=== PATIENT | female | born 1965 | race Caucasian/White ===

== ENCOUNTER 2018-09-13 07:31 | Inpatient (IN) ==
[2018-09-13] MEDS ORDERED: Lidocaine -MPF 2% 2 ML VIAL ONE (07:51)
[2018-09-13] MEDS ORDERED: Lidocaine -MPF 4% 5 ML AMPUL ONE (07:51)
[2018-09-13] MEDS ORDERED: *HR* Midazolam HCl 2 MG/2 ML VIAL ONE (07:51)
[2018-09-13] MEDS ORDERED: Dexamethasone 4 MG/ML VIAL ONE (07:51)
[2018-09-13] MEDS ORDERED: *HR* Rocuronium Bromide 50 MG/5 ML VIAL ONE (07:51)
[2018-09-13] MEDS ORDERED: Ondansetron 4 MG/2 ML VIAL ONE (07:51)
[2018-09-13] MEDS ORDERED: Neostigmine Methylsulfate 3 MG/3 ML SYRINGE ONE (07:51)
[2018-09-13] MEDS ORDERED: *HR* FentaNYL (PF) 100 MCG/2 ML VIAL ONE ×2 (07:51→11:46)
[2018-09-13] MEDS ORDERED: *HR* Propofol 200 MG/20 ML VIAL IVP ONE (07:52)
--- NOTE | 2018-09-13 07:56 | History & Physical Report ---
Date of Encounter: 09/13/18 Time of Encounter: 07:50 24 Hour HP Update - Instructions Instructions: If the History and Physical is less than 30 days old and was completed prior to A.M. admission and or procedure and has NOT been updated on calendar day of procedure please complete this update prior to performing procedure. - Update Patient reports changes in Medical Condition: No Changes in examination, assessment, or condition: No Changes in Medication: No Preop tests/diagnostics Reviewed: Yes Surgery Remains Indicated: Yes Consent for Planned Operative Procedure(s) Verified: Yes - Pre-Operative Checklist Preoperative Checklist Indicated: Yes Prophylactic Antibiotic Ordered: Yes (vancomycin due to MRSA risk) Home Medications Include Beta Aaron: Yes Beta Aaron Taken Today (Day of Surgery): Yes Beta Aaron Taken Yesterday (Day Prior to Surgery): Yes Is VTE Prophylaxis Indicated?: Yes
[2018-09-13] MEDS ORDERED: *HR* Heparin 5,000 UNIT/ML VIAL ONE ×2 (07:58→11:45)
--- NOTE | 2018-09-13 08:05 | Anesthesia Evaluation PreOp ---
Date of Encounter: 09/13/18 Time of Encounter: 08:26 - Past History Planned Operation: LEFT FEMORAL POPLITEAL BPG Cardiac History: HTN, Hyperlipidemia, Pacemaker/ICD ([employer] AICD, ROAD [employer]KER), Other (NON ISCHEMIC CARDIOMYOPATHY, PAD, DREW LE CLAUDICATION, 60-79% LICA STENOSIS) Pulmonary History: Former smoker (QUIT 2014), COPD (MILD) MARKETING COMMUNICATIONS LEADER History: Other (ANXIETY, DEPRESSION) Other Medical History: Renal (CKD3), GERD (CONTROLLED), Other (OBESITY, BMI 32) Anesthesia History: No Prior Anesthetic Complications, Past Anesthesia Alcohol Use: none Drug use: none Medications and Allergies Acetaminophen [Tylenol] 1,000 mg PO Q6HR PRN #90 tablet 07/19/18 [Rx] Albuterol Sulfate [Ventolin Hfa] 2 aerosol IH Q6H PRN 07/19/18 [History] Aspirin [Lo-Dose Aspirin EC] 81 mg PO DAILY 07/19/18 [History] Atorvastatin Calcium [Lipitor] 80 mg PO DAILY 07/19/18 [History] Carvedilol [Coreg] 6.25 mg PO BIDWM 07/19/18 [History] Clopidogrel [Plavix] 75 mg PO DAILY #30 tablet 07/19/18 [Rx] Escitalopram [Lexapro] 10 mg PO DAILY 07/19/18 [History] Furosemide [Lasix] 40 mg PO DAILY 07/19/18 [History] Losartan Potassium [Cozaar] 50 mg PO DAILY 07/19/18 [History] [place]-3/Dha/Epa/Fish Oil [Fish Oil 1,000 mg Softgel] 2,000 mg PO DAILY 07/19/18 [History] Omeprazole [PriLOSEC] 20 mg PO DAILY 07/19/18 [History] Spironolactone [Aldactone] 25 mg PO DAILY 07/19/18 [History] traZODone [TraZODone] 100 mg PO HS 07/19/18 [History] Fluticasone Propionate Nasal [Flonase] 50 mcg NS DAILY 09/13/18 [History] Allergy/AdvReac Type Severity Reaction Status Date / Time codeine Allergy Itching Verified 07/19/18 06:42 hydrocodone [From Vicodin] Allergy Itching Verified 07/19/18 06:42 tramadol Allergy Vomiting Verified 07/19/18 06:42 - Meds/Allergy Pre-op Review Medications Reviewed: Yes Allergies Reviewed: Yes Beta Blockers on Current Med List: Yes If Beta Blockers taken, Date/Time (Last Dose taken): AM Anesthesia Results - Labs Laboratory Last Values WBC 5.9 K/mcL (4.3-11.1) 09/07/18 11:58 RBC 4.38 M/mcL (3.82-4.97) 09/07/18 11:58 Hgb 12.8 g/dL (11.5-15.4) 09/07/18 11:58 Hct 39.2 % (35.3-44.9) 09/07/18 11:58 MCV 89.5 fL (83.0-100.0) 09/07/18 11:58 MCH 29.2 pg (28.0-33.3) 09/07/18 11:58 MCHC 32.7 g/dL (31.6-35.5) 09/07/18 11:58 RDW 12.2 % (11.5-14.5) 09/07/18 11:58 Plt Count 205 K/mcL (140-400) 09/07/18 11:58 MPV 9.8 fL (9.4-12.4) 09/07/18 11:58 Immature Gran % 0.3 % (0-4) 09/07/18 11:58 Seg Neutrophils % 58.3 % 09/07/18 11:58 Lymphocytes % 31.5 % 09/07/18 11:58 Monocytes % 7.9 % 09/07/18 11:58 Eosinophils % 1.5 % 09/07/18 11:58 Basophils % 0.5 % 09/07/18 11:58 Neutrophils # 3.4 K/mcL (1.6-8.9) 09/07/18 11:58 Lymphocytes # 1.8 K/mcL (0.6-4.6) 09/07/18 11:58 Monocytes # 0.5 K/mcL (0.0-1.3) 09/07/18 11:58 Eosinophils # 0.1 K/mcL (0.0-0.6) 09/07/18 11:58 Basophils # 0.0 K/mcL (0.0-0.2) 09/07/18 11:58 PT 11.8 Seconds (9.4-12.1) 09/07/18 11:58 INR 1.0 09/07/18 11:58 APTT 33.5 Seconds (26.0-36.0) 09/07/18 11:58 Sodium 139 mEq/L (136-145) 09/07/18 11:58 Potassium 4.1 mEq/L (3.5-5.1) 09/07/18 11:58 Chloride 104 mEq/L (98-107) 09/07/18 11:58 Carbon Dioxide 28 mEq/L (23-29) 09/07/18 11:58 BUN 25 mg/dL (6-20) H 09/07/18 11:58 Creatinine 1.45 mg/dL (0.60-1.20) H 09/07/18 11:58 Est GFR ( Amer) 45 (> 60) L 09/07/18 11:58 Est GFR (Non-Af Amer) 37 (> 60) L 09/07/18 11:58 BUN/Creatinine Ratio 17 (6-26) 09/07/18 11:58 Glucose 131 mg/dL (70-105) H 09/07/18 11:58 Calculated Osmolality 294 (280-300) 09/07/18 11:58 Calcium 9.6 mg/dL (8.6-10.3) 09/07/18 11:58 Blood Type A POSITIVE 09/07/18 11:58 Antibody Screen NEGATIVE 09/07/18 11:58 Crossmatch See Detail 09/07/18 11:58 - Imaging Additional studies: TTE 04/2018: Technically sub-optimal due to poor echocardiographic windows. LVEF 50%. Normal LV chamber size, wall thickness and low normal function. Mild left ventricular diastolic dysfunction. Atypical septal motion consistent with paced rhythm. Normal right ventricular structure and function. No significant valvular dysfunction. No evidence of pulmonary hypertension. A device lead was visualized in the right atrium and right ventricle. STRESS TEST 08/2018: Perfusion imaging was negative for ischemia or infarct. There is a small sized persistent perfusion defect which is mild in intensity in the mid-inferior segment suggestive of attenuation artifact Pharmacologic ECG was negative for ischemia at the level of heart rate achieved. Gated EF = 67%. Anesthesia Exam O2 Sat Height 1.65 m Weight 87.997 kg O2 Sat by Pulse Oximetry 94 Vital Signs Temp Pulse Resp BP Pulse Ox 98.0 F 75 18 113/58 94 09/13/18 07:53 09/13/18 07:53 09/13/18 07:53 09/13/18 07:53 09/13/18 07:53 NPO (# of Hours): 8 - HEENT Mallampati: II Teeth: Normal Denture Type: Upper: Complete Oral Opening: Greater than 3 - Cardiac Rhythm: Regular - Pulmonary Breath Sounds: bilateral Clear Respiratory Effort: Symmetrical Anesthesia Assess/Plan ASA Score: 4 Anesthetic Plan: General Monitoring Plan: Standard Monitors, A-Line Recovery Plan: PACU Anes Supervising Prov Stmt: PATIENT'S CHART AND CURRENT MEDICATIONS REVIEWED. Patient informed and consented. Risks, benefits, and alternatives discussed. Patient wishes to proceed.
[2018-09-13] MEDS ORDERED: Albuterol 2.5 MG/3 ML NEBULIZER IH ONE ×2 (08:09→08:33)
[2018-09-13] MEDS ORDERED: CeFAZolin Syr 2,000MG/20 ML 2,000 MG/20 ML SYRINGE IVPB ONE (08:09)
[2018-09-13] MEDS ORDERED: Albuterol 2.5 MG/3 ML NEBULIZER ONE (08:12)
[2018-09-13] MEDS ORDERED: LIDOCAINE 1% PF 2 ML AMPUL ONE (08:12)
[2018-09-13] MEDS ORDERED: Ringers Solution, Lactated 1,000 ML IVC SCH (08:15)
[2018-09-13] MEDS ORDERED: Vancomycin 1,000 MG VIAL ONE (08:30)
[2018-09-13] MEDS ORDERED: Heparin 1,000 UNITS/500 mL 1,000 ML ONE (08:30)
[2018-09-13] MEDS ORDERED: Heparin 1,000 UNITS/500 mL 500 ML ONE (08:32)
[2018-09-13] MEDS ORDERED: Albumin Human 5% 25.0 GM/500 ML VIAL ONE (08:45)
[2018-09-13] MEDS ORDERED: *HR* Vasopressin 20 UNIT/ML VIAL ONE (08:46)
[2018-09-13] MEDS ORDERED: Vancomycin 1,000 MG, Sodium Chloride IRRigation 1,000 ML IR ONE (09:00)
[2018-09-13] MEDS ORDERED: EPHEDrine 50 MG/ML VIAL ONE ×2 (09:36→11:57)
[2018-09-13] MEDS ORDERED: *HR* OxyCODONE Immed Rel 5 MG TABLET PO PRN ×2 (12:36→15:16)
[2018-09-13] MEDS ORDERED: *HR* Morphine 2 MG/ML SYRINGE IVP PRN (12:36)
[2018-09-13] MEDS ORDERED: Albuterol 2.5 MG/3 ML NEBULIZER IH PRN (12:36)
[2018-09-13] MEDS ORDERED: *HR* Promethazine 25 MG/ML VIAL IVP PRN (12:36)
[2018-09-13] MEDS ORDERED: Furosemide 40 MG/4 ML VIAL ONE (12:59)
--- NOTE | 2018-09-13 13:32 | Operative Note ---
Date of procedure: 09/13/18 Pre-op diagnosis: Peripheral vascular disease with disabling claudication Post-op diagnosis: same Procedure: 1. Left common and deep femoral endarterectomy. 2. Left femoral to above-knee popliteal artery bypass with 6 mm ring reinforced PTFE Distaflo many cuff graft. Complications: None Anesthesia: GETA Surgeon: Michael Rivera Was there an trade sales assistant present: No Estimated blood loss (cc): 150 Specimen: Left lower extremity plaque Condition: stable Disposition: PACU Procedure in Detail: Indications: The patient is a 53-year-old female with a history of critical myopathy, hypertension, peripheral vascular disease with disabling claudication, a carotid stenosis. She is found have significant peripheral vascular disease with a left superficial femoral artery occlusion. A walking regimen was not helpful and her cardiomyopathy made cilostazol a contraindication. Revascularization was recommended to help alleviate her symptoms. Procedure: The patient was identified in the preoperative area. The risks, benefits, and alternatives of the procedure were discussed. All questions were answered. The patient was taken to the operating room and placed in supine position on the operating room table. After the induction of general endotracheal anesthesia, she was cleaned and draped in normal sterile fashion. An oblique incision was made over the left groin sharply. Hemostasis was obtained with electrocautery. Through a process of blunt, sharp, and electrocautery dissection, the left femoral vessels were dissected circumferentially and surrounded with vessel loops. An incision was made on the left medial calf sharply. Hemostasis was obtained with electrocautery. Through a process of blunt, sharp, and electrocautery dissection, the left below-knee popliteal artery was dissected proximally and distally and surrounded with vessel loops. A graft was tunneled between the popliteal and femoral incisions. The patient received 5000 units of heparin intravenously. Additional heparin was given during the procedure to maintain adequate anticoagulation. The popliteal vessels were occluded and a longitudinal arteriotomy was made in the popliteal artery. The distal end of the graft was sutured in place with a running 6-0 Prolene, but not tied. Heparinized saline was infused into the lumen. Tension was applied to the femoral vessel loops. An arteriotomy was made in the common femoral artery and partially occlusive irregular plaque was noted in the distal common femoral extending into the deep femoral artery. Upon release of the deep femoral vessel loop minimal retrograde flow was noted. Using a dental freer and endarterectomy was performed of the distal common femoral and proximal deep femoral artery. After the endarterectomy vigorous retrograde flow was noted from the femoral artery. The lumen was flushed with heparinized saline. The proximal end of the graft was cut to fit the arteriotomy. An anastomosis was performed between the proximal graft and hopi artery with a running 6-0 Prolene. The vessels were flushed through the graft and heparin was infused into the lumen. The graft was clamped with an atraumatic clamp. Thrombin and gelfoam were used at the proximal anastamosis. The distal arterial anastomosis suture line was completed. Prior to completing the closure, the popliteal vessels were flushed and reoccluded. Heparinized saline was infused into the lumen. The anastamosis was then tied and then flow was restored. Polyphasic signals were noted distal to the distal anastomosis as well as at the posterior tibial artery. Wounds were irrigated with antibiotic-containing saline. Thrombin and gelfoam were used to aid in hemostasis. Platelet rich and platelet poor plasma were infused into the wounds. Meticulous hemostasis was obtained throughout the wound with electrocautery. Wounds were reapproximated with layers of 2-0 and 3-0 Vicryl. Skin was reapproximated with 3-0 Monocryl. Sterile dressing was applied. The patient was extubated and taken to recovery room in stable condition.
--- NOTE | 2018-09-13 14:57 | Anesthesia Evaluation Post Op ---
Date of Encounter: 09/13/18 Time of Encounter: 14:55 - Vital Signs Vital Signs: Vital Signs/O2 Sat/Glucose, Most Current Temp Pulse Resp BP Pulse Ox 09/13/18 14:45 70 16 118/66 97 09/13/18 14:35 73 16 108/85 95 09/13/18 14:25 97.8 F 76 16 116/59 95 09/13/18 14:15 79 16 134/62 95 09/13/18 14:05 78 16 107/47 96 09/13/18 13:55 97.5 F L 77 16 117/64 96 09/13/18 13:45 84 16 117/60 92 09/13/18 13:35 88 14 117/48 92 09/13/18 13:25 97.5 F L 96 14 132/55 94 - Lungs Lungs: Clear Ascult./Percussion - Airway Airway: Non-obstructed - Cardiovascular Regular Rate - Mental Status Mental Status: Alert & Oriented, Answers Appropriately - Pain Pain Scale: 2 - Nausea Vomiting Nausea Vomiting: Not Present - Hydration Hydration: Ice chips, Terry catheter - Discharge PostOp Status: Discharge Patient to home
[2018-09-13] MEDS ORDERED: *HR* Labetalol 20 MG/4 ML SYRINGE IVP PRN (15:16)
[2018-09-13] MEDS ORDERED: Acetaminophen 325 MG TABLET PO PRN (15:16)
[2018-09-13] MEDS ORDERED: 0.9 % Sodium Chloride 1,000 ML IVC SCH (15:16)
[2018-09-13] MEDS ORDERED: Ondansetron 4 MG/2 ML VIAL IVP PRN (15:16)
[2018-09-13] MEDS ORDERED: Naloxone 0.4 MG/ML INJ IVP PRN (15:16)
[2018-09-13] MEDS ORDERED: *HR* Metoprolol 5 MG/5 ML VIAL IVP ONE (15:48)
[2018-09-13] MEDS: *HR* Metoprolol 5 MG/5 ML VIAL IVP SCH (15:51)
[2018-09-13] MEDS: *HR* OxyCODONE/APAP 5/325 TABLET PO PRN (15:51)
[2018-09-13 15:58] LABS: Basophils % 0.2 %; Eosinophils % 0.2 %; Hematocrit 32.5 % (35.3-44.9); Immature Granulocytes % 0.3 % (0-4); Lymphocytes # 1.1 K/mcL (0.6-4.6); Lymphocytes % 12.9 %; Mean Corpuscular HGB Conc 33.2 g/dL (31.6-35.5); Mean Corpuscular Hemoglobin 29.8 pg (28.0-33.3); Mean Corpuscular Volume 89.5 fL (83.0-100.0); Mean Platelet Volume 9.5 fL (9.4-12.4); Monocytes # 0.2 K/mcL (0.0-1.3); Monocytes % 2.7 %; Neutrophils # 7.3 K/mcL (1.6-8.9); Platelet Count 178 K/mcL (140-400); Red Blood Count 3.63 M/mcL (3.82-4.97); Red Cell Distribution Width 12.2 % (11.5-14.5); Segmented Neutrophils % 83.7 %
[2018-09-13 16:11] LABS: Hemoglobin 10.8 g/dL (11.5-15.4)
[2018-09-13] MEDS ORDERED: traZODone 50 MG TABLET PO SCH (21:00)
[2018-09-14] MEDS: *HR* Metoprolol 5 MG/5 ML VIAL IVP SCH ×2 (00:12→05:50)
[2018-09-14 05:23] LABS: Hematocrit 25.5 % (35.3-44.9); Immature Granulocytes % 0.3 % (0-4); Lymphocytes % 10.4 %; Mean Corpuscular HGB Conc 33.7 g/dL (31.6-35.5); Mean Corpuscular Volume 88.9 fL (83.0-100.0); Monocytes # 0.5 K/mcL (0.0-1.3); Monocytes % 5.8 %; Neutrophils # 7.8 K/mcL (1.6-8.9); Platelet Count 175 K/mcL (140-400); Red Blood Count 2.87 M/mcL (3.82-4.97); Red Cell Distribution Width 12.2 % (11.5-14.5); Segmented Neutrophils % 83.5 %
[2018-09-14 05:25] LABS: Hemoglobin 8.6 g/dL (11.5-15.4)
[2018-09-14 05:43] LABS: Calcium 8.4 mg/dL (8.6-10.3); Potassium 4.3 mEq/L (3.5-5.1)
[2018-09-14] MEDS: *HR* OxyCODONE/APAP 5/325 TABLET PO PRN (05:56)
[2018-09-14] MEDS ORDERED: *HR* Heparin 5,000 UNIT/ML VIAL SQ SCH ×2 (06:00)
[2018-09-14 07:24] VITALS: BP 104/54
--- NOTE | 2018-09-14 08:56 | Discharge Summary ---
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 Vazquez is a 53 year old female - Time Spent with Patient Total time spent providing and/or coordinating discharge services: - Discharge Medications Prescriptions: OxyCODONE/APAP 5/325 [Percocet 5/325 MG] 1 each PO Q6HR PRN 5 Days #20 tablet PRN Reason: postoperative pain Home Medications: Albuterol Sulfate [Ventolin Hfa] 2 puff IH Q6H PRN 07/19/18 [History] Aspirin [Lo-Dose Aspirin EC] 81 mg PO DAILY 07/19/18 [History] Atorvastatin Calcium [Lipitor] 80 mg PO DAILY 07/19/18 [History] Carvedilol [Coreg] 6.25 mg PO BIDWM 07/19/18 [History] Clopidogrel [Plavix] 75 mg PO DAILY #30 tablet 07/19/18 [Rx] Escitalopram [Lexapro] 10 mg PO DAILY 07/19/18 [History] Furosemide [Lasix] 40 mg PO DAILY 07/19/18 [History] Losartan Potassium [Cozaar] 50 mg PO DAILY 07/19/18 [History] [place]-3/Dha/Epa/Fish Oil [Fish Oil 1,000 mg Softgel] 2,000 mg PO DAILY 07/19/18 [History] Omeprazole [PriLOSEC] 20 mg PO DAILY 07/19/18 [History] Spironolactone [Aldactone] 25 mg PO DAILY 07/19/18 [History] traZODone [TraZODone] 100 mg PO HS 07/19/18 [History] Fluticasone Propionate Nasal [Flonase] 1 spr NS DAILY 09/13/18 [History] OxyCODONE/APAP 5/325 [Percocet 5/325 MG] 1 each PO Q6HR PRN 5 Days #20 tablet 09/14/18 [Rx] Allergies/Adverse Reactions: Allergy/AdvReac Type Severity Reaction Status Date / Time codeine Allergy Itching Verified 07/19/18 06:42 hydrocodone [From Vicodin] Allergy Itching Verified 07/19/18 06:42 tramadol Allergy Vomiting Verified 07/19/18 06:42 Date of admission: 09/13/18 15:05 Primary care physician: Kristen Subramanian DO Exam Vital Signs, Last 4 Hours Temp Pulse Resp BP Pulse Ox 09/14/18 07:22 98.1 F 77 18 104/54 97 - Discharge Instructions Follow Up With: Kristen Subramanian DO [Primary Care Provider] - 09/19/18 10:20 am Michael Rivera MD [Partnered Physician] - 10/10/18 1:50 pm
[2018-09-14] MEDS ORDERED: Furosemide 40 MG TABLET PO SCH (09:00)
[2018-09-14] MEDS ORDERED: Fluticasone Propionate Nasal 50 MCG/SPRAY BOTTLE NS SCH (09:00)
[2018-09-14] MEDS ORDERED: (Omega-3/Dha/Epa/Fish Oil [Fish Oil 1,000 Mg Softgel] PO SCH (09:00)
[2018-09-14] MEDS ORDERED: Aspirin Enteric Coated 81 MG Tablet PO SCH (09:00)
[2018-09-14] MEDS ORDERED: Spironolactone 25 MG TABLET PO SCH (09:00)
== END 2018-09-14 10:44 | disposition home or self-care (01) | DRG 181 ==
LOC: SAMDAY 07:31 → 2NNU 15:05
PROVIDERS: ADMIT Surgery; ATTEND Surgery

== ENCOUNTER 2020-12-21 09:01 | Inpatient (IN) ==
[2020-12-21] MEDS ORDERED: Isovue-370 500 ML BOTTLE IVP ONE (09:06)
[2020-12-21] MEDS ORDERED: Ondansetron 4 MG/2 ML VIAL IVP ONE (09:09)
[2020-12-21] MEDS ORDERED: 0.9 % Sodium Chloride 500 ML IVC ONE (09:10)
[2020-12-21] MEDS ORDERED: Pantoprazole 40 MG VIAL IVP ONE (09:10)
[2020-12-21] MEDS ORDERED: *HR* FentaNYL (PF) 100 MCG/2 ML VIAL IVP ONE (09:16)
[2020-12-21 09:31] LABS: Basophils % 0.3 %; Eosinophils # 0.1 K/mcL (0.0-0.6); Eosinophils % 0.6 %; Hematocrit 46.4 % (35.3-44.9); Immature Granulocytes % 0.4 % (0-4); Lymphocytes # 1.6 K/mcL (0.6-4.6); Lymphocytes % 13.9 %; Mean Corpuscular HGB Conc 34.5 g/dL (31.6-35.5); Mean Corpuscular Hemoglobin 28.7 pg (28.0-33.3); Mean Corpuscular Volume 83.3 fL (83.0-100.0); Mean Platelet Volume 11.4 fL (9.4-12.4); Monocytes # 0.8 K/mcL (0.0-1.3); Platelet Count 268 K/mcL (140-400); Red Blood Count 5.57 M/mcL (3.82-4.97); Red Cell Distribution Width 12.5 % (11.5-14.5); Segmented Neutrophils % 77.8 %; White Blood Count 11.5 K/mcL (4.3-11.1)
[2020-12-21 09:38] LABS: INR 1.2
[2020-12-21 09:41] LABS: Activated Partial Thrombo Time 25.3 Seconds (26.0-36.0)
[2020-12-21 10:12] LABS: Alanine Aminotransferase 24 Units/L (7-52); Alkaline Phosphatase 133 Units/L (34-104); Aspartate Amino Transferase 20 Units/L (13-39); BUN/Creatinine Ratio 22 (6-26); Bilirubin,Direct 0.1 mg/dL (0.0-0.2); Bilirubin,Indirect 0.7 mg/dL (0.0-1.0); Bilirubin,Total 0.8 mg/dL (0.3-1.0); Blood Urea Nitrogen 43 mg/dL (6-20); C-Reactive Protein 12 mg/L (Less than 10); Carbon Dioxide 21 mEq/L (23-29); Chloride 86 mEq/L (98-107); Ferritin 42 ng/mL (10-120); Glucose 770 mg/dL (70-105); Lactate Dehydrogenase 180 Units/L (140-271); Lipase > 1800 Units/L (11-82); Osmolality,Calculated 300 (280-300); Phosphorous 5.2 mg/dL (2.7-4.5); Potassium 4.6 mEq/L (3.5-5.1); Sodium 121 mEq/L (136-145); Troponin I 0.03 ng/mL (< 0.04); eGFR For African Americans 31 (> 60); eGFR For Non-African Americans 26 (> 60)
[2020-12-21] MEDS ORDERED: Insulin Human Regular 10 UNIT in 0.9 % Sodium Chloride 10 ML IV ONE (10:13)
[2020-12-21] MEDS ORDERED: 0.9 % Sodium Chloride 1,000 ML IVC ONE (10:15)
[2020-12-21 10:57] LABS: VBG HCO3 25 mEq/L (21-27); VBG PCO2 47 mmHg (41-51); VBG PH 7.33 pH Units (7.32-7.42); VBG PO2 136 mmHg (25-50)
[2020-12-21 11:02] LABS: Adenovirus Not Detected (Not Detect); Bordetella Pertussis Not Detected (Not Detect); Chlamydophila pneumoniae Not Detected (Not Detect); Coronavirus 229E Not Detected (Not Detect); Coronavirus HKU1 Not Detected (Not Detect); Coronavirus NL63 Not Detected (Not Detect); Coronavirus OC43 Not Detected (Not Detect); Human Metapneumovirus Not Detected (Not Detect); Human Rhinovirus/Enterovirus Not Detected (Not Detect); Influenza A Subtype 2009 H1 Not Detected (Not Detect); Influenza B Not Detected (Not Detect); Mycoplasma pneumoniae Not Detected (Not Detect); Parainfluenza Virus 1 Not Detected (Not Detect); Parainfluenza Virus 2 Not Detected (Not Detect); Parainfluenza Virus 3 Not Detected (Not Detect); Parainfluenza Virus 4 Not Detected (Not Detect); Respiratory Syncytial Virus Not Detected (Not Detect); SARS-CoV-2 Not Detected (Not Detect)
[2020-12-21] MEDS ORDERED: Naloxone 0.4 MG/ML INJ IVP PRN ×2 (12:35→15:06)
[2020-12-21 13:23] LABS: Calcium 9.6 mg/dL (8.6-10.3); Potassium 4.5 mEq/L (3.5-5.1)
[2020-12-21] MEDS ORDERED: *HR* Dextrose 50 % in Water (Vial) 50 ML VIAL IVP PRN (14:01)
[2020-12-21] MEDS ORDERED: Dextrose Gel 15 GM/37.5 ML TUBE PO PRN ×2 (14:01)
[2020-12-21] MEDS ORDERED: D5% in Water 1,000 ML IVC PRN (14:01)
[2020-12-21] MEDS ORDERED: Ketorolac 15 MG/ML VIAL IVP PRN (15:06)
[2020-12-21] MEDS ORDERED: Insulin LISPRO 300 UNITS/3 ML VIAL SUBQ ONE ×4 (15:58→21:00)
[2020-12-21] MEDS: *HR* OxyCODONE Immed Rel 5 MG TABLET PO PRN ×2 (17:01→23:31)
[2020-12-21] MEDS: 0.9 % Sodium Chloride 1,000 ML IVC SCH (17:02)
[2020-12-21] MEDS: Insulin LISPRO 300 UNITS/3 ML VIAL SUBQ SCH (21:53)
[2020-12-21] MEDS: Insulin DETEMIR 100 UNIT/ML X5UNITS SUBQ SCH (21:54)
[2020-12-22] MEDS ORDERED: Insulin LISPRO 300 UNITS/3 ML VIAL SUBQ SCH (00:01)
[2020-12-22] MEDS: 0.9 % Sodium Chloride 1,000 ML IVC SCH ×2 (04:02→16:37)
[2020-12-22 04:22] LABS: Basophils % 0.4 %; Eosinophils # 0.2 K/mcL (0.0-0.6); Eosinophils % 1.9 %; Hematocrit 42.3 % (35.3-44.9); Immature Granulocytes % 0.4 % (0-4); Lymphocytes % 18.1 %; Mean Corpuscular HGB Conc 33.8 g/dL (31.6-35.5); Mean Corpuscular Hemoglobin 28.7 pg (28.0-33.3); Mean Corpuscular Volume 84.8 fL (83.0-100.0); Mean Platelet Volume 10.9 fL (9.4-12.4); Monocytes # 0.9 K/mcL (0.0-1.3); Monocytes % 8.1 %; Platelet Count 194 K/mcL (140-400); Red Blood Count 4.99 M/mcL (3.82-4.97); Red Cell Distribution Width 12.6 % (11.5-14.5); Segmented Neutrophils % 71.1 %; White Blood Count 11.2 K/mcL (4.3-11.1)
[2020-12-22 04:23] LABS: Hemoglobin 14.3 g/dL (11.5-15.4)
[2020-12-22 04:42] LABS: Albumin 3.5 g/dL (3.5-5.7); Albumin/Globulin Ratio 1.1 (1.1-2.2); Bilirubin,Total 0.6 mg/dL (0.3-1.0); Calcium 8.6 mg/dL (8.6-10.3); Chol/HDL Ratio 6.8 (0-4.9); Globulin 3.1 g/dL (2.4-3.5); Potassium 3.6 mEq/L (3.5-5.1); Total Protein 6.6 g/dL (6.4-8.9)
[2020-12-22 07:34] LABS: Estimated Average Glucose 372 mg/dl; Hemoglobin A1C 14.6 %
[2020-12-22] MEDS: *HR* OxyCODONE Immed Rel 5 MG TABLET PO PRN ×2 (09:34→19:10)
[2020-12-22] MEDS: Insulin LISPRO 300 UNITS/3 ML VIAL SUBQ SCH ×4 (09:35→20:31)
[2020-12-22] MEDS: Pantoprazole 40 MG VIAL IVP SCH (09:35)
[2020-12-22] MEDS: carvediloL 6.25 MG TABLET PO SCH (16:35)
[2020-12-22] MEDS: Insulin DETEMIR 100 UNIT/ML X5UNITS SUBQ SCH (20:32)
[2020-12-22] MEDS: traZODone 50 MG TABLET PO SCH (20:32)
[2020-12-22] MEDS: Apixaban 2.5 MG TABLET PO SCH (20:32)
[2020-12-23] MEDS: 0.9 % Sodium Chloride 1,000 ML IVC SCH ×3 (03:31→20:00)
[2020-12-23] MEDS: *HR* OxyCODONE Immed Rel 5 MG TABLET PO PRN (03:33)
[2020-12-23 04:35] LABS: Basophils % 0.4 %; Eosinophils # 0.1 K/mcL (0.0-0.6); Eosinophils % 2.4 %; Hematocrit 33.7 % (35.3-44.9); Immature Granulocytes % 0.4 % (0-4); Lymphocytes # 1.2 K/mcL (0.6-4.6); Lymphocytes % 23.7 %; Mean Corpuscular HGB Conc 33.2 g/dL (31.6-35.5); Mean Corpuscular Hemoglobin 28.6 pg (28.0-33.3); Mean Corpuscular Volume 86.2 fL (83.0-100.0); Mean Platelet Volume 10.5 fL (9.4-12.4); Monocytes # 0.5 K/mcL (0.0-1.3); Monocytes % 10.6 %; Neutrophils # 3.1 K/mcL (1.6-8.9); Platelet Count 142 K/mcL (140-400); Red Blood Count 3.91 M/mcL (3.82-4.97); Red Cell Distribution Width 12.9 % (11.5-14.5); Segmented Neutrophils % 62.5 %
[2020-12-23 04:51] LABS: Albumin 2.8 g/dL (3.5-5.7); Albumin/Globulin Ratio 1.1 (1.1-2.2); Calcium 7.8 mg/dL (8.6-10.3); Globulin 2.6 g/dL (2.4-3.5); Magnesium 1.7 mg/dL (1.6-2.6); Phosphorous 2.4 mg/dL (2.7-4.5); Potassium 3.5 mEq/L (3.5-5.1); Total Protein 5.4 g/dL (6.4-8.9)
[2020-12-23 04:53] LABS: Hemoglobin 11.2 g/dL (11.5-15.4)
[2020-12-23] MEDS ORDERED: Furosemide 40 MG TABLET PO SCH (09:00)
[2020-12-23] MEDS: Insulin LISPRO 300 UNITS/3 ML VIAL SUBQ SCH ×4 (09:29→20:35)
[2020-12-23] MEDS: Aspirin Enteric Coated 81 MG Tablet PO SCH (09:30)
[2020-12-23] MEDS: Apixaban 2.5 MG TABLET PO SCH ×2 (09:30→19:58)
[2020-12-23] MEDS: Spironolactone 25 MG TABLET PO SCH (09:30)
[2020-12-23] MEDS: carvediloL 6.25 MG TABLET PO SCH ×2 (09:30→17:37)
[2020-12-23] MEDS: Pantoprazole 40 MG VIAL IVP SCH (09:31)
[2020-12-23] MEDS: traZODone 50 MG TABLET PO SCH (19:59)
[2020-12-24 02:42] LABS: Basophils % 0.2 %; Eosinophils # 0.1 K/mcL (0.0-0.6); Eosinophils % 1.9 %; Hematocrit 31.7 % (35.3-44.9); Hemoglobin 10.3 g/dL (11.5-15.4); Immature Granulocytes % 0.2 % (0-4); Lymphocytes # 1.4 K/mcL (0.6-4.6); Lymphocytes % 30.6 %; Mean Corpuscular HGB Conc 32.5 g/dL (31.6-35.5); Mean Corpuscular Hemoglobin 27.8 pg (28.0-33.3); Mean Corpuscular Volume 85.7 fL (83.0-100.0); Mean Platelet Volume 10.9 fL (9.4-12.4); Monocytes # 0.5 K/mcL (0.0-1.3); Monocytes % 10.6 %; Neutrophils # 2.7 K/mcL (1.6-8.9); Platelet Count 131 K/mcL (140-400); Segmented Neutrophils % 56.5 %; White Blood Count 4.7 K/mcL (4.3-11.1)
[2020-12-24 03:04] LABS: Albumin 2.8 g/dL (3.5-5.7); Albumin/Globulin Ratio 1.1 (1.1-2.2); Bilirubin,Total 0.5 mg/dL (0.3-1.0); Calcium 7.8 mg/dL (8.6-10.3); Globulin 2.5 g/dL (2.4-3.5); Magnesium 1.8 mg/dL (1.6-2.6); Potassium 3.4 mEq/L (3.5-5.1); Total Protein 5.3 g/dL (6.4-8.9)
[2020-12-24 06:59] VITALS: BP 137/57
[2020-12-24] MEDS: Apixaban 2.5 MG TABLET PO SCH (08:14)
[2020-12-24] MEDS: Aspirin Enteric Coated 81 MG Tablet PO SCH (08:14)
[2020-12-24] MEDS: carvediloL 6.25 MG TABLET PO SCH (08:14)
[2020-12-24] MEDS: Spironolactone 25 MG TABLET PO SCH (08:15)
[2020-12-24] MEDS: Insulin LISPRO 300 UNITS/3 ML VIAL SUBQ SCH (08:15)
[2020-12-24] MEDS ORDERED: FLU Vac QV 20-21 (6Month+)/PF 0.5 ML SYRINGE IM ONE (10:03)
== END 2020-12-24 12:11 | disposition home or self-care (01) | DRG 438 ==
LOC: 3ANU 09:01 → EMEROOARM 09:01 → 3ANU 14:34 → SUATTDRO 12-23 14:02
PROVIDERS: ADMIT Internal Medicine; ATTEND Internal Medicine